=== PATIENT | male | born 1980 | race African-American/Black ===

== ENCOUNTER 2024-04-29 20:35 | Emergency (ER) | payer BC, MEDICAID ==
[2024-04-29 20:50] VITALS: PULSE 91; RESP 20
== END 2024-04-30 00:27 | disposition left against medical advice (07) ==
LOC: ER 20:35
DX: F41.9 Anxiety disorder, unspecified (principal); Z53.21 Procedure and treatment not carried out due to patient leaving prior to being seen by health care provider